=== PATIENT | female | born 1985 | race Caucasian/White ===

== ENCOUNTER 2018-09-24 06:47 | Day surgery (SDC) | payer OTHER ==
[~2018-09-24] VITALS: Ht 157.5 cm; Wt 108.9 kg
[2018-09-24] MEDS ORDERED: SEVOFLURANE 250 ML BTL INH ONE (10:43)
[2018-09-24] MEDS ORDERED: PROPOFOL 200 MG/20 ML VIAL IV ONE (10:43)
[2018-09-24] MEDS ORDERED: LIDOCAINE/EPI MPF 1%1:200000 30 ML VIAL INJ ONE (10:53)
[2018-09-24] MEDS ORDERED: BUPIVACAINE-MPF/EPI 0.25% 30 ML VIAL INJ ONE (10:53)
[2018-09-24] MEDS ORDERED: fentaNYL 0.05 MG/ML VIAL ONE (10:59)
[2018-09-24] MEDS ORDERED: MIDAZOLAM 2 MG/2 ML VIAL ONE (10:59)
[2018-09-24] MEDS ORDERED: LACTATED RINGERS 1,000 ML IV SCH (11:21)
[2018-09-24] MEDS ORDERED: ONDANSETRON 4 MG/2 ML VIAL IVP PRN (11:25)
[2018-09-24] MEDS ORDERED: MEPERIDINE 25 MG/ML SYR IVP PRN (11:25)
[2018-09-24] MEDS ORDERED: HYDROmorphone 1 MG/ML AMP IVP PRN ×2 (11:25→12:50)
[2018-09-24] MEDS ORDERED: diphenhydrAMINE 50 MG/ML VIAL IVP PRN (11:25)
[2018-09-24] MEDS ORDERED: MEPERIDINE 50 MG/ML SYR ONE (12:16)
[2018-09-24] MEDS ORDERED: MORPHINE SULFATE 2 MG/ML SYR IVP PRN (12:50)
[2018-09-24] MEDS ORDERED: MORPHINE SULFATE 4 MG/ML SYR IV PRN (12:50)
[2018-09-24] MEDS ORDERED: HYDROcodone/APAP 5/325 MG 1 TAB TAB PO PRN (12:50)
[2018-09-24] MEDS ORDERED: ONDANSETRON 4 MG/2 ML VIAL IV PRN (12:50)
[2018-09-24] MEDS ORDERED: HYDROmorphone PFS 2 MG/ML SYR ONE (13:24)
== END 2018-09-24 14:35 | disposition home or self-care (01) ==
LOC: MOR 06:47 → MMU 06:48 → MOR 14:35
PROVIDERS: ATTEND Surgery
DX: D17.1 Benign lipomatous neoplasm of skin and subcutaneous tissue of trunk (principal); N80.8 Other endometriosis; R19.00 Intra-abdominal and pelvic swelling, mass and lump, unspecified site; E66.9 Obesity, unspecified; Z68.41 Body mass index [BMI] 40.0-44.9, adult
CPT/HCPCS: 21931; 22901; 71045; 76998; 88304; 88305; J0690; J1170; J2001; J2175; J2250; J2270; J2704; J3010; J3490; J7060; J7120; Q0092